=== PATIENT | female | born 1975 | race Native Hawaiian/Other Pacific Islander ===

== ENCOUNTER 2017-05-09 10:37 | Emergency (ER) | payer OTHER ==
[2017-05-09 10:37] VITALS: BMI 21.6
[2017-05-09 10:50] VITALS: BP 128/79; PULSE 79; RESP 16; TEMP 98.4; O2SAT 100
--- NOTE | 2017-05-09 11:20 | ED PDOC ---
HPI: Allergic Reaction Time Seen by Provider: 05/09/17 11:17 Chief Complaint (Nursing): Allergic Reaction Chief Complaint (Provider): Allergic Reaction History Per: Patient History/Exam Limitations: no limitations Onset/Duration Of Symptoms: Days (60), Waxing/Waning, Intermittent Episodes Current Symptoms Are (Timing): Better Possible Cause: Unknown Associated Symptoms: Skin Rash, Swelling, Itching. denies: Dyspnea, Trouble Swallowing, Redness, Chest Pain Home/EMS Treatment: Benadryl Severity: Mild Past Medical History Vital Signs: Last Vital Signs Temp 98.4 F 05/09/17 10:47 Pulse 79 05/09/17 10:47 Resp 16 05/09/17 10:47 BP 128/79 05/09/17 10:47 Pulse Ox 100 05/09/17 10:47 - Medical History PMH: Hiatal Hernia, HTN, Hypothyroidism - Surgical History Surgical History: Appendectomy - Family History Family History: States: Hypertension - Home Medications Home Medications: Ambulatory Orders Medication Instructions Recorded Pantoprazole Sodium [Protonix] 40 mg PO DAILY 04/03/16 amLODIPine [Norvasc] 10 mg PO DAILY 04/03/16 Prednisone [Deltasone] 20 mg PO DAILY #5 tablet 05/09/17 - Allergies Allergies/Adverse Reactions: Allergies Allergy/AdvReac Type Severity Reaction Status Date / Time No Known Allergies Allergy Verified 05/09/17 10:47 Review of Systems Constitutional: Negative for: Fever Eyes: Negative for: Eyelid Inflammation, Redness Respiratory: Negative for: Cough, Shortness of Breath, Wheezing Skin: Positive for: Rash Physical Exam - Physical Exam Skin: Positive for: Normal Color, Rash (mild erythemic rash to right forearm) - ECG O2 Sat by Pulse Oximetry: 100 Disposition - Clinical Impression Clinical Impression: Allergic reaction - Patient ED Disposition Is Patient to be Admitted: No Doctor Will See Patient In The: Office Counseled Patient/Family Regarding: Diagnosis, Need For Followup, Rx Given - Disposition Referrals: Giovany Gomes MD [Staff Provider] - Disposition: Routine/Home Disposition Time: 11:22 Condition: GOOD Prescriptions: Prednisone [Deltasone] 20 mg PO DAILY #5 tablet Instructions: Allergy Skin Testing Forms: [employer] (Luxem[place]ish)
== END 2017-05-09 12:32 | disposition home or self-care (01) ==
LOC: H.ER 10:37
DX: T78.40XA Allergy, unspecified, initial encounter (principal); I10 Essential (primary) hypertension; E03.9 Hypothyroidism, unspecified
CPT/HCPCS: 96372; 99282; J1100

== ENCOUNTER 2018-03-01 17:11 | Emergency (ER) | payer BC, OTHER ==
[2018-03-01 17:12] VITALS: BMI 21.6
[2018-03-01 17:17] VITALS: TEMP 98.2
[2018-03-01] MEDS ORDERED: Sucralfate 1 gm/10 ml Oral Susp UD PO STA (17:34)
--- NOTE | 2018-03-01 17:56 | ED PDOC ---
HPI: Chest Pain Time Seen by Provider: 03/01/18 17:25 Chief Complaint (Nursing): Chest Pain Chief Complaint (Provider): Chest Pain History Per: Patient History/Exam Limitations: no limitations Onset/Duration Of Symptoms: Days (x 1 week) Current Symptoms Are (Timing): Still Present Quality: Pressure, "Pain" Additional Complaint(s): 42 year old female with a history of HTN, acid reflux. hiatal hernia and Ren's disease presents to the ED with left sided, pressure-like chest pain radiating to left shoulder for one week as well as shortness of breath and dizziness. Patient initially thought it was due to reflux because of history and has since taken multiple antacids without relief. She becomes short of breath if she talks for too long and today developed nausea and dizziness. Also reports intermittent pedal swelling bilaterally especially after a long day at work. Swelling resolves overnight. Denies fever and vomiting. PMD: Dr. Castro Past Medical History Reviewed: Historical Data, Nursing Documentation, Vital Signs Vital Signs: Last Vital Signs Temp 98.2 F 03/01/18 17:15 Pulse 80 03/01/18 17:15 Resp 18 03/01/18 17:15 BP 145/90 03/01/18 17:15 Pulse Ox 100 03/01/18 17:15 - Medical History PMH: Hiatal Hernia, HTN, Hypothyroidism - Surgical History Surgical History: Appendectomy - Family History Family History: States: Hypertension - Social History Current smoker - smoking cessation education provided: No - Home Medications Home Medications: Ambulatory Orders Medication Instructions Recorded Pantoprazole Sodium [Protonix] 40 mg PO DAILY 04/03/16 amLODIPine [Norvasc] 10 mg PO DAILY 04/03/16 RX: Prednisone [Deltasone] 20 mg PO DAILY #5 tablet 05/09/17 Cyclobenzaprine [Flexeril] 5 mg PO Q8 PRN #15 tab 03/01/18 RX: Naproxen [Naprosyn] 1 tab PO BID PRN #20 tab 03/01/18 RX: Sucralfate [Carafate Tab] 1 gm PO Q6 PRN #30 tab 03/01/18 - Allergies Allergies/Adverse Reactions: Allergies Allergy/AdvReac Type Severity Reaction Status Date / Time iron Allergy RASH Verified 03/01/18 17:15 lidocaine Allergy RASH Verified 03/01/18 17:15 Review of Systems ROS Statement: Except As Marked, All Systems Reviewed And Found Negative (and as per HPI) Constitutional: Negative for: Fever, Chills Cardiovascular: Positive for: Chest Pain Respiratory: Positive for: Shortness of Breath Musculoskeletal: Positive for: Arm Pain (left) Skin: Negative for: Rash Neurological: Positive for: Dizziness Physical Exam - Reviewed Nursing Documentation Reviewed: Yes Vital Signs Reviewed: Yes - Physical Exam Appears: Positive for: Non-toxic, No Acute Distress Head Exam: Positive for: ATRAUMATIC, NORMAL INSPECTION, NORMOCEPHALIC Skin: Positive for: Warm, Dry Eye Exam: Positive for: EOMI, PERRL ENT: Negative for: Pharyngeal Erythema, Tonsillar Exudate Neck: Positive for: Painless ROM, Supple Cardiovascular/Chest: Positive for: Regular Rate, Rhythm. Negative for: Murmur Respiratory: Positive for: Normal Breath Sounds. Negative for: Respiratory Distress Gastrointestinal/Abdominal: Positive for: Soft. Negative for: Tenderness Back: Positive for: Normal Inspection. Negative for: Vertebral Tenderness Extremity: Positive for: Normal ROM (x 4), Pedal Edema (very trace edema at bilateral ankles) Lymphatic: Negative for: Adenopathy Neurologic/Psych: Positive for: Alert. Negative for: Motor/Sensory Deficits - Laboratory Results Result Diagrams: 03/01/18 17:47 03/01/18 17:47 - ECG ECG: Positive for: Interpreted By Mo ECG Rhythm: Positive for: Normal QRS, Sinus Rhythm, Nonspecific Changes (T wave inversion inferior leads, similar to EKG 2016) O2 Sat by Pulse Oximetry: 100 (RA) Pulse Ox Interpretation: Normal - Radiology X-Ray: Interpreted by Mo X-Ray Interpretation: No Acute Disease Medical Decision Making Medical Decision Makin:25 Impression: chest pain Differential diagnoses include but are not limited: PE, CHF, severe reflux, costochondritis, PNA and influenza Initial Plan: --EKG --BNP --CMP --CBC --Free T4 --Free T3 --TSH --Mag --Phos --Troponin --Urine dip --Urine preg --D Dimer --CXR --Carafate 1 gm PO --Urine cx --UA --Influenza AB No clinically significant abnormalities. CLINICAL HISTORY: Shortness of breath. TECHNIQUE: Multiple axial, coronal, sagittal CT images were obtained through the chest, abdomen and pelvis with IV contrast material. [id number] 90ML. DLP 250.78. COMMENTS: There is no evidence of pleural or parenchymal mass. There are no pleural effusions. There is no evidence of hilar or mediastinal lymphadenopathy. Specifically, there is no evidence for paratracheal and supraclavicular adenopathy. There is no evidence for a chest or abdominal wall nodule or mass. The heart and great vessels are within normal limits. 1.5 cm hypodensity is present in the left hepatic lobe consistent with cyst versus hemangioma. The gallbladder is within normal limits. There is no intrahepatic or extrahepatic biliary ductal dilatation. The spleen is normal. The pancreas is of normal contour and attenuation characteristics. There is no evidence of adrenal mass. Both kidneys demonstrate prompt and equal nephrograms. The kidneys are normal in size, shape and configuration. There is no evidence of renal mass. There is no hydroureter or hydronephrosis. There is no bowel wall thickening. No evidence for small or large bowel obstruction. Mild non-specific bilateral hilar adenopathy is seen likely reactive. There is no evidence of abdominal ascites. There is no evidence of intrinsic or extrinsic bladder mass. There is no pelvic ascites. There is 1.5 x 0.7 cm left thyroid nodule. Follow-up with thyroid ultrasound is recommended. The bony structures are free of lytic or blastic lesions. IMPRESSION: 1. No evidence of PE. 2. Left hepatic lobe cyst versus hemangioma. 3. Mild non-specific bilateral hilar adenopathy likely reactive. 4. Left thyroid nodule. Follow-up with thyroid ultrasound is recommended. Electronically signed on Mar 01, 2018 9:45:53 PM EST by: Richard Flanagan M.D., MBA Certified By [facility] [facility] Fellowship Trained MRI and CT Specialist DW pt and findings. Pt to be discharged with followup pmd. Scribe Attestation: Documented by Edita Mahmood acting as a scribe for Gerda Cummings MD Provider Scribe Attestation: All medical record entries made by the Scribe were at my direction and personally dictated by me. I have reviewed the chart and agree that the record accurately reflects my personal performance of the history, physical exam, medi sparkle decision making, and the department course for this patient. I have also personally directed, reviewed, and agree with the discharge instructions and disposition. Disposition - Clinical Impression Clinical Impression: Chest pain Counseled Patient/Family Regarding: Studies Performed, Diagnosis, Need For Followup, Rx Given - Disposition Referrals: Korey Biswas MD [Staff Provider] - (FOLLOW UP WITH DR BISWAS OR ANOTHER RN NEONATAL WITHIN A WEEK FOR FURTHER EVALUATION. YOU MAY NEED AN ENDOSCOPY FOR FURTHER DIAGNOSIS.) Disposition: Routine/Home Disposition Time: 22:27 Condition: STABLE Prescriptions: Cyclobenzaprine [Flexeril] 5 mg PO Q8 PRN #15 tab PRN Reason: muscle spasm RX: Naproxen [Naprosyn] 1 tab PO BID PRN #20 tab PRN Reason: Pain RX: Sucralfate [Carafate Tab] 1 gm PO Q6 PRN #30 tab PRN Reason: ABDOMINAL PAIN Instructions: Chest Pain (DC) Forms: [employer] (Danish), [facility] ED School/Work Excuse
[2018-03-01 18:00] LABS: BASO % 0.6 % (0.0-2.0); EOS # 0.1 K/uL (0.0-0.7); EOS % 0.9 % (0.0-4.0); HEMOGLOBIN 13.8 g/dL (12.0-16.0); LYMPH # 1.5 K/uL (1.0-4.3); LYMPH % 22.4 % (20.0-40.0); MEAN CELL VOLUME 85.8 fl (81.0-99.0); MEAN CORPUSCULAR HEMOGLOBIN 28.2 pg (27.0-31.0); MEAN CORPUSCULAR HGB CONC 32.9 g/dL (33.0-37.0); MONO # 0.4 K/uL (0.0-0.8); MONO % 6.4 % (0.0-10.0); NEUT # 4.7 K/uL (1.8-7.0); NEUT % 69.7 % (50.0-75.0); NRBC % 0.3 % (0.0-0.0); RBC 4.88 Mil/uL (3.80-5.20); RED CELL DISTRIBUTION WIDTH 13.6 % (11.5-14.5); WHITE BLOOD COUNT 6.8 K/uL (4.8-10.8)
[2018-03-01 18:04] LABS: ALB/GLOB RATIO 1.3 (1.0-2.1); ALBUMIN 4.7 g/dL (3.5-5.0); ALT/SGPT 26 U/L (9-52); AST/SGOT 26 U/L (14-36); BLOOD UREA NITROGEN 17 mg/dl (7-17); CALCIUM 9.4 mg/dL (8.4-10.2); GFR NON-AFRICAN AMERICAN > 60
[2018-03-01 18:07] LABS: SQUAMOUS EPITHIAL 2 /hpf (0-5); URINE BACTERIA RARE (<OCC); URINE BILIRUBIN NEGATIVE (NEGATIVE); URINE BLOOD NEGATIVE (NEGATIVE); URINE CLARITY SLIGHTY-CLOUDY (Clear); URINE COLOR YELLOW (YELLOW); URINE GLUCOSE (UA) NEG (NEGATIVE); URINE LEUKOCYTE ESTERASE SMALL Leu/uL (Negative); URINE PROTEIN NEGATIVE (NEGATIVE); URINE UROBILINOGEN 0.2-1.0 mg/dL (0.2-1.0)
[2018-03-01 18:17] LABS: B-TYPE NATRIURETIC PEPTIDE 90.3 pg/ml (0-450)
[2018-03-01] MEDS ORDERED: Sucralfate 1 gm/10 ml Oral Susp UD ONE (18:23)
[2018-03-01 18:35] LABS: T3 1.32 nmol/L (1.49-2.60)
[2018-03-01] MEDS ORDERED: Sodium Chloride 0.9% 50 ML IV ONE (20:55)
[2018-03-01] MEDS ORDERED: Iodixanol 320 MG/ML 100 ML BOTTLE IV ONE (20:55)
[2018-03-01 22:36] VITALS: BP 116/77; PULSE 66; RESP 16
--- NOTE | 2018-03-02 06:48 | CT ---
Date of service: 03/01/2018 PROCEDURE: CT Chest with contrast (Pulmonary Angiogram) HISTORY: sob COMPARISON: 02/09/2016 TECHNIQUE: Axial computed tomography images were obtained of the chest in the pulmonary arterial phase of enhancement. Coronal and sagittal reformatted images were created and reviewed. Intravenous contrast dose: Radiation dose: Total exam DLP = 250.79 mGy-cm. This CT exam was performed using one or more of the following dose reduction techniques: Automated exposure control, adjustment of the mA and/or kV according to patient size, and/or use of iterative reconstruction technique. FINDINGS: PULMONARY ARTERIES: Unremarkable. No pulmonary embolism. AORTA: No acute findings. No thoracic aortic aneurysm. No aortic atherosclerotic calcification or mural plaque present. LUNGS: Unremarkable. No nodule, mass or pulmonary consolidation. PLEURAL SPACES: Unremarkable. No effusion or pneumothorax. HEART: Unremarkable. No cardiomegaly. No significant pericardial effusion. LYMPH NODES: No lymphadenopathy. BONES, CHEST WALL: Unremarkable. No fracture or destructive lesion OTHER FINDINGS: Nonspecific left thyroid nodule, larger compared the prior exam. Recommend thyroid ultrasound. IMPRESSION: Nonspecific left thyroid nodule.. No pulmonary embolus.
--- NOTE | 2018-03-02 07:51 | RAD ---
Date of service: 03/01/2018 HISTORY: chest pain COMPARISON: No prior. TECHNIQUE: Chest PA and lateral FINDINGS: LUNGS: No active pulmonary disease. PLEURA: No significant pleural effusion identified. No pneumothorax apparent. CARDIOVASCULAR: No aortic atherosclerotic calcification present. Normal cardiac size. No pulmonary vascular congestion. OSSEOUS STRUCTURES: No significant abnormalities. VISUALIZED UPPER ABDOMEN: Normal. OTHER FINDINGS: None. IMPRESSION: No active disease.
--- NOTE | 2018-03-02 23:00 | CARD ---
APPROVED REPORT Date of service: 03/01/2018 EKG Measurement Heart [id number] <Conclusion> Normal sinus rhythm Nonspecific T wave abnormality Abnormal ECG
[2018-03-02 23:31] VITALS: O2SAT 100
== END 2018-03-01 23:08 | disposition home or self-care (01) ==
LOC: H.ER 17:11
DX: R07.9 Chest pain, unspecified (principal); I10 Essential (primary) hypertension; E04.1 Nontoxic single thyroid nodule; E06.3 Autoimmune thyroiditis
CPT/HCPCS: 71046; 71275; 80053; 81003; 81025; 83735; 83880; 84100; 84439; 84443; 84480; 84484; 85025; 85378; 87086; 87804; 93005; 96374; 96375; 99283; J2405; Q9967